=== PATIENT | female | born 1995 | race Caucasian/White ===

== ENCOUNTER → 2022-08-26 | Outpatient (CLI) | payer BC, OTHER ==
--- NOTE | 2022-08-26 13:20 | US ---
EXAMINATION TYPE: Transabdominal DATE OF EXAM: 08/26/2022 12:27 PM COMPARISON: NONE CLINICAL INDICATION: Female, 27 years old with history of O46.91 ANTEPARTUM HEMORRHAGE, UNSPECIFIED, FIRST TRIMESTER; EXAM PERFORMED: Transabdominal (TA) EXAM MEASUREMENTS: GESTATIONAL AGE / DATING Physician Established: Not yet established Dates by LMP: LMP unknown Dates by First Scan: No previous this is first scan Dates by Current Scan for: (7 weeks/4 days) EDC: 04/10/2023 MATERNAL ANATOMY Uterus: 12.4 x 5.3 x 5.5cm Right Ovary: 2.8 x 1.7 x 2.1cm Left Ovary: 3.9 x 2.9 x 3.3cm Post CDS / Adnexa: wnl Presence of free fluid: no Presence of corpus luteal cyst: left ovary - 2.2 x 1.7 x 2.1cm Presence of subchorionic bleed: no GESTATION / SURVEY CRL: 1.3cm (7 weeks/4 days) Yolk Sac (normal less than 6mm): 3.7mm Heart Rate: 152 bpm Rhythm: Normal IUP: Viable IUP IMPRESSION: Single live intrauterine gestations with ultrasound age 7 weeks 4 days.
== END | disposition home or self-care (01) ==
LOC: RADUSWWP 12:04
PROVIDERS: ATTEND Obstetrics & Gynecology
DX: O46.91 Antepartum hemorrhage, unspecified, first trimester (principal); Z3A.01 Less than 8 weeks gestation of pregnancy
CPT/HCPCS: 76801